=== PATIENT | male | born 1980 | race Hispanic/Latino ===

== ENCOUNTER 2017-10-20 07:45 | Emergency (ER) | payer OTHER, SELFPAY ==
[2017-10-20] MEDS ORDERED: METHYLPREDNISOLONE 125 MG INJ ONE (08:34)
[2017-10-20] MEDS ORDERED: IPRATROPIUM BROM 0.5MG/2.5ML ONE (08:35)
[2017-10-20] MEDS ORDERED: ALBUTEROL 2.5 MG/3 ML NEB SOL ONE (08:35)
[2017-10-20] MEDS ORDERED: NA CHLORIDE 0.9% 500 ML ONE (08:35)
[2017-10-20 09:11] LABS: Bicarbonate 25 mEq/L (21-31); Glucose Level 100 mg/dL (65-120); Potassium 4.1 mEq/L (3.6-5.0); Sodium Level 138 mEq/L (135-145)
[2017-10-20 09:13] LABS: Absolute Lymphocytes (CBC) 2.3 K/uL (0.7-4.9); Absolute Monocytes 0.6 K/uL (0.1-1.3); Absolute Neutrophil 5.3 K/uL (1.8-8.0); Basophils % 0.7 % (0-1.3); Eosinophils % 6.2 % (0-4.4); Hematocrit 44.8 % (39.6-49.0); Lymphocytes % 25.9 % (15.3-44.8); MCH 31.3 pg (27.0-35.0); MPV 8.4 fL (7.6-11.3); Monocytes % 6.8 % (3.3-12.3); RBC Red Blood Cell Count 4.98 M/uL (4.33-5.43)
[2017-10-20 09:17] LABS: ALT/SGPT 41 IU/L (10-60); AST/SGOT 27 IU/L (10-42); Albumin 4.4 g/dL (3.2-5.5); Alkaline Phosphatase 62 IU/L (42-121); BUN Blood Urea Nitrogen 21 mg/dL (6-20); Bilirubin Direct 0.1 mg/dL (0-0.2); Bilirubin Total 0.8 mg/dL (0.3-1.2); Creatine Phosphokinase 90 IU/L (22-269); Glomerular Filtration Rate > 90 mL/min (=/>90); Magnesium 1.5 mg/dL (1.8-2.5); Protein, Total 7.7 g/dL (6.0-8.3)
[2017-10-20 09:21] LABS: CKMB Creatine Kinase MB 2.2 ng/ml (0.3-4.0)
[2017-10-20 09:24] LABS: Protime INR 0.88
[2017-10-20] MEDS ORDERED: CETIRIZINE HCL 5 MG TABLET ONE (09:32)
[2017-10-20 09:44] LABS: Urine Blood TRACE (NEG); Urine Glucose NEGATIVE (NEG); Urine Protein NEGATIVE (NEG)
[2017-10-20] MEDS ORDERED: MAGNESIUM SULFATE 1 gm IVPB 1 GM/100 ML BAG IV ONE (10:01)
--- NOTE | 2017-10-20 10:04 | RAD REPORT ---
EXAM DESCRIPTION: RAD - Chest Pa And Lat (2 Views) - 10/20/2017 9:37 am CLINICAL HISTORY: Cough, shortness of breath COMPARISON: None. TECHNIQUE: PA and lateral views of the chest were obtained. FINDINGS: The lungs are underinflated. This accentuates the lung markings. No failure, infiltrate, m ass or edema suspected. Trachea is midline. Heart size is normal and central vasculature is within normal limits. No pleural effusion or pneumothorax seen. No acute bony finding noted. No aortic ab normality. IMPRESSION: Shallow inspiration exam without an acute cardiopulmonary finding.
--- NOTE | 2017-10-20 11:50 | ER ---
Nurse's Notes [facility] Name: David Valenzuela Age: 36 yrs Sex: Male : 1980 Arrival Date: 10/20/2017 Time: 07:48 Bed 6 Private MD: Diagnosis: Other chest pain;Shortness of breath Presentation: 10/20 07:54 Presenting complaint: Patient states: nasal discharge x 2 week, now nasal congestion ss and difficulty breathing since last night. Transition of care: patient was not received from another setting of care. Onset of symptoms was October 06, 2017. Care prior to arrival: None. 07:54 Method Of Arrival: Ambulatory ss 07:54 Acuity: KIM 4 ss Triage Assessment: 08:27 General: Appears in no apparent distress. uncomfortable. Respiratory: Reports shortness jl7 of breath since last night the patient has mild shortness of breath. Respiratory: Airway is patent Respiratory effort is even, unlabored, Respiratory pattern is regular, symmetrical. Respiratory: Breath sounds are clear bilaterally. Historical: - Allergies: 07:55 No Known Allergies; ss - Home Meds: 07:55 None [Active]; ss - PMHx: 07:55 None; ss - PSHx: 07:55 None; ss - Immunization history:: Adult Immunizations unknown. - Social history:: Smoking status: Patient/guardian denies using tobacco. Screenin:01 Abuse screen: Denies threats or abuse. Denies injuries from another. Nutritional jtb screening: No deficits noted. Tuberculosis screening: No symptoms or risk factors identified. Fall Risk None identified. Assessment: 08:01 General: Appears in no apparent distress. uncomfortable, Behavior is calm, cooperative, jtb appropriate for age. Pain: Complains of pain in chest Pain does not radiate. Pain currently is 2 out of 10 on a pain scale. at worst was 4 out of 10 on a pain scale. Quality of pain is described as pressure, Pain began 1 day ago. Is continuous. 08:01 Neuro: Level of Consciousness is awake, alert, obeys commands, Oriented to person, jtb place, time, situation. Cardiovascular: Reports shortness of breath, since Yesterday Heart tones S1 S2 present Patient's skin is warm and dry. Rhythm is sinus rhythm. Respiratory: Airway is patent Respiratory effort is even, unlabored, Respiratory pattern is regular, symmetrical, Breath sounds are clear bilaterally. GI: No signs and/or symptoms were reported involving the gastrointestinal system. : No signs and/or symptoms were reported regarding the genitourinary system. EENT: Throat is reddened. Derm: Skin is intact, Skin is dry, Skin is normal, Skin temperature is warm. Musculoskeletal: No signs and/or symptoms reported regarding the musculoskeletal system. 08:45 Reassessment: Patient and/or family updated on plan of care and expected duration. Pain jtb level reassessed. Patient is alert, oriented x 3, equal unlabored respirations, skin warm/dry/pink. Pt reports easier breathing. Respirations even and unlabored. Patient states feeling better. 09:15 Reassessment: Pt is at Radiology. jtb 09:50 Reassessment: Patient and/or family updated on plan of care and expected duration. Pain jtb level reassessed. Patient is alert, oriented x 3, equal unlabored respirations, skin warm/dry/pink. Pt states " The pain is almost gone now." Patient states feeling better. 10:32 Reassessment: Patient is alert, oriented x 3, equal unlabored respirations, skin jtb warm/dry/pink. Patient denies pain at this time. Patient states feeling better. 11:07 Reassessment: No changes from previously documented assessment. Patient and/or family jtb updated on plan of care and expected duration. Pain level reassessed. Patient is alert, oriented x 3, equal unlabored respirations, skin warm/dry/pink. Vital Signs: 07:55 Resp 17; Pain 2/10; ss 08:23 BP 125 / 92; Pulse 75; Resp 16 S; Pulse Ox 99% on Nebulizer Mask; Pain 2/10; jtb 08:30 Temp 97.8(O); jtb 09:00 BP 124 / 86; Pulse 84; Resp 18 S; Pulse Ox 95% on R/A; jtb 09:50 BP 110 / 72; Pulse 66; Resp 15 S; Pulse Ox 93% on R/A; Pain 0/10; jtb 10:32 BP 106 / 73; Pulse 79; Resp 16; Pulse Ox 93% on R/A; Pain 0/10; jtb 11:07 BP 119 / 77; Pulse 89; Resp 18 S; Pulse Ox 95% on R/A; Pain 0/10; jtb ED Course: 07:48 Patient arrived in ED. sb2 07:50 Tushar Onofre PA is PHCP. cp 07:50 Magdaleno Odom MD is Attending Physician. cp 07:55 Triage completed. ss 07:55 Arm band placed on right wrist. ss 08:01 Patient has correct armband on for positive identification. Placed in gown. Bed in low jtb position. Call light in reach. Side rails up X 1. septic tank installer on. Pulse ox on. NIBP on. 08:20 Inserted saline lock: 20 gauge in right antecubital area, using aseptic technique. jtb Blood collected. 08:20 Initial lab(s) drawn, by ED staff, sent to lab. jtb 08:21 EKG done, by poultry service technician. reviewed by Tushar CRANE. at1 08:26 Nisha Mata, RN is Primary Nurse. jl7 08:38 Radiology exam delayed due to patient receiving breathing treatment at this time. kw 09:22 X-ray completed. Patient tolerated procedure well. Patient moved back from radiology. ml 11:41 EKG done, by poultry service technician. reviewed by Tushar CRANE Repeat EKG. at1 12:10 No provider procedures requiring assistance completed. IV discontinued, intact, jtb bleeding controlled. Administered Medications: 08:00 Drug: AtroVENT Aerosol 0.5 mg Route: Inhalation; jl7 08:54 Follow up: Response: No adverse reaction ss 08:20 Drug: Albuterol 2.5 mg Route: Inhalation; jl7 08:55 Follow up: Response: No adverse reaction ss 08:21 Drug: NS 0.9% 500 ml Route: IV; Rate: bolus; Site: right antecubital; jl7 08:55 Follow up: IV Status: Completed infusion ss 08:22 Drug: SOLU-Medrol 125 mg Route: IVP; Site: right antecubital; jl7 08:55 Follow up: Response: No adverse reaction ss 09:15 Drug: ZyrTEC - Cetirizine 10 mg Route: PO; jl7 09:45 Follow up: Response: No adverse reaction jl7 09:50 Drug: Magnesium Sulfate 1 grams Route: IVPB; Infused Over: 1 hrs; Site: right jl7 antecubital; 10:50 Follow up: IV Status: Completed infusion jl7 Outcome: 11:49 Discharge ordered by . cp 12:10 Discharged to home ambulatory. jtb 12:10 Condition: stable 12:10 Discharge instructions given to patient, Instructed on discharge instructions, follow up and referral plans. medication usage, Demonstrated understanding of instructions, follow-up care, medications, Prescriptions given X 3. 12:11 Patient left the ED. jtb 12:27 Attestation : I agree with everything documented by Brigido Lagunas Student Nurse. jl7 Signatures: Jenn Yeager Shelby, RN RN ss Jacey Padilla Amanda, finance business partner EKG Tat1 Tushar Onofre PA PA cp Leal, Jahala RN RN jl7 Sussy Jarquin sb2 Brigido Lagunas j Corrections: (The following items were deleted from the chart) 08:22 08:01 Pain: Complains of pain in chest jtb jtb 10:02 08:01 EENT: No signs and/or symptoms were reported regarding the EENT system. jtb jtb
--- NOTE | 2017-10-20 11:50 | EDPHYS ---
Physician Documentation [facility] Name: David Valenzuela Age: 36 yrs Sex: Male : 1980 Arrival Date: 10/20/2017 Time: 07:48 Bed 6 Private MD: ED Physician Magdaleno Odom HPI: 10/20 08:02 This 36 yrs old Male presents to ER via Ambulatory with complaints of Nasal cp Congestion. 08:02 The patient has shortness of breath at rest. cp 08:02 Onset: The symptoms/episode began/occurred 2 week(s) ago, and became worse last night. cp 08:02 Associated signs and symptoms: Pertinent positives: chest pressure, slight cp non-productive cough, Pertinent negatives: fever, vomiting. Severity of symptoms: in the emergency department the symptoms are unchanged despite home interventions. Historical: - Allergies: 07:55 No Known Allergies; ss - Home Meds: 07:55 None [Active]; ss - PMHx: 07:55 None; ss - PSHx: 07:55 None; ss - Immunization history:: Adult Immunizations unknown. - Social history:: Smoking status: Patient/guardian denies using tobacco. ROS: 08:05 Constitutional: Negative for body aches, chills, fever, poor PO intake. cp 08:05 Eyes: Negative for injury, pain, redness, and discharge. cp 08:05 ENT: Positive for nasal congestion, Negative for drainage from ear(s), ear pain, sore throat, difficulty swallowing, difficulty handling secretions. 08:05 Neck: Negative for pain with movement, pain at rest, stiffness. 08:05 Cardiovascular: Positive for chest pain, Negative for edema, palpitations. 08:05 Respiratory: Positive for shortness of breath, at rest. Negative for wheezing. 08:05 Abdomen/GI: Negative for abdominal pain, nausea, vomiting, and diarrhea, constipation, black/tarry stool, rectal bleeding. 08:05 Back: Negative for pain at rest, pain with movement, radiated pain. 08:05 : Negative for urinary symptoms. 08:05 Skin: Negative for cellulitis, rash. 08:05 Neuro: Negative for altered mental status, dizziness, headache, syncope, near syncope, weakness. 08:05 All other systems are negative. Exam: 08:10 Constitutional: The patient appears in no acute distress, alert, awake, cp non-diaphoretic, non-toxic, well developed, well nourished, obese. 08:10 Head/Face: Normocephalic, atraumatic. cp 08:10 Eyes: Periorbital structures: appear normal, Pupils: equal, round, and reactive to cp light and accomodation, Extraocular movements: intact throughout, Conjunctiva: normal, no exudate, no injection, Sclera: no appreciated abnormality, Lids and lashes: appear normal, bilaterally. 08:10 ENT: External ear(s): are unremarkable, Ear canal(s): are normal, clear, TM's: bulging, is not appreciated, bilaterally, dullness, bilaterally, erythema, is not appreciated, bilaterally, Nose: noted congestion, scant rhinorrhea, Mouth: Lips: moist, Oral mucosa: pink and intact, moist, Posterior pharynx: Airway: no evidence of obstruction, patent, Tonsils: no enlargement, no erythema, no exudate, Uvula: midline, non-edematous, no erythema, swelling, is not appreciated, erythema, is not appreciated, exudate, is not appreciated, Voice: is normal. 08:10 Neck: ROM/movement: is normal, is supple, without pain, no range of motions limitations, no meningismus, no nuchal rigidity, Lymph nodes: no appreciated lymphadenopathy. 08:10 Chest/axilla: Inspection: normal, Palpation: is normal, no crepitus, no tenderness. 08:10 Cardiovascular: Rate: normal, Rhythm: regular, Pulses: Pulses are 2+ in right radial artery and left radial artery. Edema: is not appreciated, JVD: is not appreciated. 08:10 Respiratory: the patient does not display signs of respiratory distress, Respirations: labored breathing, is not present, accessory muscle usage, is absent, shallow respirations, that is mild, splinting, is not noted, tachypnea, is not appreciated, Breath sounds: decreased breath sounds, that are mild, diffuse, stridor, is not appreciated, + upper airway congestion. wheezing: is not appreciated. 08:10 Abdomen/GI: Inspection: abdomen appears normal, Bowel sounds: active, all quadrants, Palpation: abdomen is soft and non-tender, in all quadrants, rebound tenderness, is not appreciated, voluntary guarding, is not appreciated, involuntary guarding, is not appreciated. 08:10 Back: pain, is absent, ROM is normal. 08:10 Skin: cellulitis, is not appreciated, no rash present. 08:10 Neuro: Orientation: to person, place \T\ time. Mentation: lucid, able to follow commands, Cerebellar function: is grossly normal, Motor: moves all fours, strength is normal, Sensation: no obvious gross deficits. 08:18 ECG was reviewed by the Attending Physician. cp 11:05 ECG was reviewed by the Attending Physician. cp Vital Signs: 07:55 Resp 17; Pain 2/10; ss 08:23 BP 125 / 92; Pulse 75; Resp 16 S; Pulse Ox 99% on Nebulizer Mask; Pain 2/10; jtb 08:30 Temp 97.8(O); jtb 09:00 BP 124 / 86; Pulse 84; Resp 18 S; Pulse Ox 95% on R/A; jtb 09:50 BP 110 / 72; Pulse 66; Resp 15 S; Pulse Ox 93% on R/A; Pain 0/10; jtb 10:32 BP 106 / 73; Pulse 79; Resp 16; Pulse Ox 93% on R/A; Pain 0/10; jtb 11:07 BP 119 / 77; Pulse 89; Resp 18 S; Pulse Ox 95% on R/A; Pain 0/10; jtb MDM: 07:51 Patient medically screened. cp 08:19 Differential diagnosis: asthma, Bronchitis CHF exacerbation, Chronic Obstructive cp Pulmonary Disease pneumonia, Pneumothorax pulmonary edema, Pulmonary Embolism Unstable Angina. 11:45 Antibiotic administration: Not indicated, the patient does not have an appreciated cp infiltrate. 11:47 Data reviewed: vital signs, nurses notes, lab test result(s), EKG, radiologic studies, cp plain films. ED course: VSS. Patient reports he is feeling better. Will discharge to home for continued monitoring. 10/20 08:02 Order name: Basic Metabolic Panel cp 10/20 08:02 Order name: BNP cp 10/20 08:02 Order name: CBC with Diff cp 10/20 08:02 Order name: Ckmb cp 10/20 08:02 Order name: CPK cp 10/20 08:02 Order name: LFT's cp 10/20 08:02 Order name: Magnesium cp 10/20 08:02 Order name: PT-INR cp 10/20 08:02 Order name: Ptt, Activated cp 10/20 08:02 Order name: Troponin (emerg Dept Use Only) cp 10/20 09:12 Order name: Basic Metabolic Panel; Complete Time: 09:26 EDMS 10/20 09:26 Interpretation: Normal except: BUN 21. cp 10/20 09:18 Order name: Liver (Hepatic) Function; Complete Time: 09:26 EDMS 10/20 10:17 Interpretation: Within normal limits. cp 10/20 09:18 Order name: Creatine Phosphokinase; Complete Time: 09:26 EDMS 10/20 09:18 Order name: Magnesium; Complete Time: 09:26 EDMS 10/20 09:27 Interpretation: Abnormal: MG 1.5. cp 10/20 08:20 Order name: XRAY Chest Pa And Lat (2 Views) cp 10/20 09:19 Order name: CBC with Automated Diff; Complete Time: 09:26 EDMS 10/20 10:17 Interpretation: Normal except: EOSINOPHIL % 6.2. cp 10/20 09:19 Order name: Troponin (Emerg Dept Use Only); Complete Time: 09:26 EDMS 10/20 10:17 Interpretation: Within normal limits: TROPED < 0.03. cp 10/20 09:21 Order name: CKMB Creatine Kinase MB; Complete Time: 09:26 EDMS 10/20 09:23 Order name: Urine Dipstick--Ancillary (enter results) bd 10/20 09:26 Order name: Protime (+INR); Complete Time: 10:07 EDMS 10/20 09:26 Order name: PTT, Activated Partial Thromb; Complete Time: 10:07 EDMS 10/20 09:45 Order name: Urine Dipstick-Ancillary; Complete Time: 10:07 EDMS 10/20 10:07 Interpretation: Normal except: UBLD TRACE. cp 10/20 09:50 Order name: BNP B-Type Natriuretic Peptide; Complete Time: 10:07 EDMS 10/20 10:04 Order name: RAD; Complete Time: 10:07 EDMS 10/20 10:08 Interpretation: Report reviewed. cp 10/20 10:50 Order name: Troponin (emerg Dept Use Only) cp 10/20 11:33 Order name: Troponin (Emerg Dept Use Only); Complete Time: 11:45 EDMS 10/20 11:45 Interpretation: Reviewed. cp 10/20 08:02 Order name: EKG; Complete Time: 08:03 cp 10/20 08:02 Order name: Cardiac monitoring; Complete Time: 08:24 cp 10/20 08:02 Order name: EKG - Nurse/Tech; Complete Time: 08:24 cp 10/20 08:02 Order name: IV Saline Lock; Complete Time: 08:24 cp 10/20 08:02 Order name: Labs collected and sent; Complete Time: 08:24 cp 10/20 08:02 Order name: O2 Per Protocol; Complete Time: 08:24 cp 10/20 08:02 Order name: O2 Sat Monitoring; Complete Time: 08:25 cp 10/20 08:02 Order name: Urine Dipstick-Ancillary (obtain specimen); Complete Time: 09:19 cp 10/20 10:50 Order name: EKG - Nurse/Tech; Complete Time: 11:07 cp 10/20 10:50 Order name: EKG; Complete Time: 10:50 cp 10/20 10:50 Order name: Repeat Cardiac Enzymes at: 1100; Complete Time: 11:07 cp EC:18 Rate is 84 beats/min. Rhythm is regular. ME interval is normal. QRS interval is cp prolonged at 106 msec. QT interval is normal. No ST changes noted. Interpreted by me. Reviewed by me. 11:05 Rate is 75 beats/min. Rhythm is regular. ME interval is normal. QRS interval is cp prolonged at 104 msec. QT interval is normal. No ST changes noted. Interpreted by me. Reviewed by me. Administered Medications: 08:00 Drug: AtroVENT Aerosol 0.5 mg Route: Inhalation; jl7 08:54 Follow up: Response: No adverse reaction ss 08:20 Drug: Albuterol 2.5 mg Route: Inhalation; jl7 08:55 Follow up: Response: No adverse reaction ss 08:21 Drug: NS 0.9% 500 ml Route: IV; Rate: bolus; Site: right antecubital; jl7 08:55 Follow up: IV Status: Completed infusion ss 08:22 Drug: SOLU-Medrol 125 mg Route: IVP; Site: right antecubital; jl7 08:55 Follow up: Response: No adverse reaction ss 09:15 Drug: ZyrTEC - Cetirizine 10 mg Route: PO; jl7 09:45 Follow up: Response: No adverse reaction jl7 09:50 Drug: Magnesium Sulfate 1 grams Route: IVPB; Infused Over: 1 hrs; Site: right jl7 antecubital; 10:50 Follow up: IV Status: Completed infusion jl7 Disposition: 10/20/17 11:49 Discharged to Home. Impression: Other chest pain, Shortness of breath. - Condition is Stable. - Discharge Instructions: Nonspecific Chest Pain, Shortness of Breath. - Prescriptions for Prednisone 20 mg Oral Tablet - take 2 tablet by ORAL route once daily for 5 days; 10 tablet. Albuterol Sulfate 90 mcg/actuation - inhale 1-2 puff by INHALATION route every 4-6 hours; 1 Inhaler. Zyrtec 10 mg Oral Tablet - take 1 tablet by ORAL route once daily As needed; 30 tablet. - Medication Reconciliation Form, Thank You Letter, Antibiotic Education, Prescription Opioid Use, Work release form form. - Follow up: Private Physician; When: 1 - 2 days; Reason: Recheck today's complaints. - Problem is new. - Symptoms have improved. Addendum: 10/23/2017 19:07 Co-signature as Attending Physician, Magdaleno Odom MD I agree with the assessment and w a plan of care. Signatures: Dispatcher [employer] EDMS Belen Riddle RN RN ss Page, Corey, PA PA cp Leal, Jahala, RN RN jl7 Magdaleno Odom MD MD wa Bryson, James jtb
--- NOTE | 2017-10-20 14:04 | EKG ---
Test Date: 2017-10-20 Test Time: 11:03:17 Media Law Faculty Member: ISATU MEASUREMENT RESULTS: Intervals: Rate: 75 MI: 144 QRSD: 104 QT: 368 QTc: 410 [place]: P: 18 MI: 144 QRS: 10 T: 26 INTERPRETIVE STATEMENTS: Normal sinus rhythm Normal ECG Compared to ECG 10/20/2017 08:03:14 No significant changes Electronically Signed On 10-20-17 14:03:45 CDT by Baljeet Seymour
--- NOTE | 2017-10-20 14:05 | EKG ---
Test Date: 2017-10-20 Test Time: 08:03:14 Tobacco Grader: ISATU MEASUREMENT RESULTS: Intervals: Rate: 84 WV: 136 QRSD: 106 QT: 360 QTc: 425 [place]: P: 10 WV: 136 QRS: -2 T: 36 INTERPRETIVE STATEMENTS: Normal sinus rhythm Normal ECG Compared to ECG 10/13/2016 10:08:52 Sinus tachycardia no longer present Ventricular premature complex(es) no longer present Electronically Signed On 10-20-17 14:03:56 CDT by Baljeet Seymour
== END 2017-10-20 12:11 | disposition home or self-care (01) ==
LOC: ER 07:45
DX: R07.89 Other chest pain (principal)
CPT/HCPCS: 36415; 71046; 80048; 80076; 81003; 82550; 82553; 83735; 83880; 84484; 85025; 85610; 85730; 93005; 96361; 96365; 96375; 99285; J2930; J3475

== ENCOUNTER 2018-01-29 13:25 | Emergency (ER) | payer OTHER ==
[2018-01-29] MEDS ORDERED: TETRACAINE HCL 0.5% 2ML OPTH ONE (14:02)
[2018-01-29] MEDS ORDERED: FLUORESCEIN SODIUM 0.6 MG/WRAP ONE (14:02)
[2018-01-29] MEDS ORDERED: ERYTHROMYCIN 3.5GM OPTH OINT EACH EYE ONE (14:15)
--- NOTE | 2018-01-29 14:34 | EDPHYS ---
Physician Documentation [facility] Name: David Valenzuela Age: 37 yrs Sex: Male : 1980 Arrival Date: 01/29/2018 Time: 13:28 Bed 23 Private MD: None, None ED Physician Fabiano Mccullough HPI: 01/29 13:58 This 37 yrs old Male presents to ER via Ambulatory with complaints of Eye snw Problem. 13:58 The patient is experiencing pain, redness, tearing, to the left eye, caused by an snw unknown mechanism. Onset: The symptoms/episode began/occurred suddenly, yesterday. Duration: the symptoms are continuous. Associated signs and symptoms: Pertinent positives: None. Patient wears hard contact lenses. Severity of symptoms: At their worst the symptoms were moderate. It is unknown whether or not the patient has had similar symptoms in the past. The patient has not recently seen a physician. 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 - Social history:: Smoking status: Patient/guardian denies using tobacco. - Ebola Screening: : Patient denies exposure to infectious person Patient denies travel to an Ebola-affected area in the 21 days before illness onset. ROS: 13:57 Constitutional: Negative for fever, chills, and weight loss, ENT: Negative for injury, snw pain, and discharge, Neck: Negative for injury, pain, and swelling, Cardiovascular: Negative for chest pain, palpitations, and edema, Respiratory: Negative for shortness of breath, cough, wheezing, and pleuritic chest pain, Abdomen/GI: Negative for abdominal pain, nausea, vomiting, diarrhea, and constipation, Back: Negative for injury and pain, : Negative for injury, bleeding, discharge, and swelling, MS/Extremity: Negative for injury and deformity, Skin: Negative for injury, rash, and discoloration, Neuro: Negative for headache, weakness, numbness, tingling, and seizure. 13:57 ENT: Positive for left eye pain and tearing. Exam: 13:56 Constitutional: This is a well developed, well nourished patient who is awake, alert, snw and in no acute distress. Head/Face: Normocephalic, atraumatic. ENT: Nares patent. No nasal discharge, no septal abnormalities noted. Tympanic membranes are normal and external auditory canals are clear. Oropharynx with no redness, swelling, or masses, exudates, or evidence of obstruction, uvula midline. Mucous membranes moist. Neck: Trachea midline, no thyromegaly or masses palpated, and no cervical lymphadenopathy. Supple, full range of motion without nuchal rigidity, or vertebral point tenderness. No Meningismus. Chest/axilla: Normal chest wall appearance and motion. Nontender with no deformity. No lesions are appreciated. Cardiovascular: Regular rate and rhythm with a normal S1 and S2. No gallops, murmurs, or rubs. Normal PMI, no JVD. No pulse deficits. Respiratory: Lungs have equal breath sounds bilaterally, clear to auscultation and percussion. No rales, rhonchi or wheezes noted. No increased work of breathing, no retractions or nasal flaring. Abdomen/GI: Soft, non-tender, with normal bowel sounds. No distension or tympany. No guarding or rebound. No evidence of tenderness throughout. Back: No spinal tenderness. No costovertebral tenderness. Full range of motion. Skin: Warm, dry with normal turgor. Normal color with no rashes, no lesions, and no evidence of cellulitis. MS/ Extremity: Pulses equal, no cyanosis. Neurovascular intact. Full, normal range of motion. Neuro: Awake and alert, GCS 15, oriented to person, place, time, and situation. Cranial nerves II-XII grossly intact. Motor strength 5/5 in all extremities. Sensory grossly intact. Cerebellar exam normal. Normal gait. 13:56 Eyes: Periorbital structures: swelling, that is mild, on the left upper eyelid and left lower eyelid, Pupils: no acute changes, Extraocular movements: no acute changes, Conjunctiva: tearing noted, in left eye, Sclera: no appreciated abnormality, Lids and lashes: appear normal. 14:34 Eyes: Corneas: abrasion, that is small, on the left, a fluorescein strip employed to snw appreciate the findings, US of eye per Dr. Mccullough. Vital Signs: 13:44 BP 122 / 84; Pulse 80; Resp 16; Temp 97.7(O); Pulse Ox 97% on R/A; Pain 5/10; ss Visual Acuity: 14:08 Left Eye Pupil size 4 mm, Reactive To Accomodation; Right Eye Visual acuity 20/40, ss Pupil size 4 mm, Reactive To Accomodation; Both Eyes Visual acuity 20/40; Without Lenses; Pt states he is unable to read any lettering on visual acuity chart that he can only see "shadows" Procedures: 14:30 Eye Exam: no noted retinal detachment per Dr. Mccullough per US, no increased ICP. snw MDM: 13:48 Patient medically screened. snw 14:29 ED course: Bedside u/s does not reveal retinal detachment, optic nerve sheath diameter rn normal range, + corneal abrasion/ulceration evident on exam. . 14:35 Data reviewed: vital signs, nurses notes. Data interpreted: Pulse oximetry: on room air snw is 97 %. Interpretation: acceptable. Counseling: I had a detailed discussion with the patient and/or guardian regarding: the historical points, exam findings, and any diagnostic results supporting the discharge/admit diagnosis, the presence of at least one elevated blood pressure reading (>120/80) during this emergency department visit, the need for outpatient follow up, to return to the emergency department if symptoms worsen or persist or if there are any questions or concerns that arise at home. Special discussion: I have referred the patient to see his PCP for further evaluation of high blood pressure. Based on the history and exam findings, there is no indication for further emergent testing or inpatient evaluation. I discussed with the patient/guardian the need to see the opthamologist for further evaluation of the symptoms, I discussed with the patient/guardian the need to see the primary care provider for further evaluation of the symptoms. 01/29 13:53 Order name: Visual Acuity; Complete Time: 14:07 snw 01/29 13:53 Order name: Eye Tray; Complete Time: 13:57 snw 01/29 13:53 Order name: Fluoresene Opth strip; Complete Time: 13:57 snw Administered Medications: 14:12 Drug: Tetracaine Drops 0.5 % 1 drops {Note: administered by Allison Lucas NP.} ss Route: Ophthalmic; Site: left eye; 14:31 Drug: ERYTHromycin Ointment 1 application Route: Ophthalmic; Site: left eye; ss Disposition: 18:19 Co-signature as Attending Physician, Fabiano Mccullough MD. rn Disposition: 01/29/18 14:34 Discharged to Home. Impression: Injury of conjunctiva and corneal abrasion without foreign body, left eye. - Condition is Stable. - Discharge Instructions: Corneal Abrasion. - Prescriptions for Tylenol- Codeine #3 300-30 mg Oral Tablet - take 2 tablet by ORAL route every 6 hours As needed; 30 tablet. Vigamox 0.5 % Ophthalmic Drops - instill 1 drop by OPHTHALMIC route every 8 hours for 7 days; 5 milliliter. - Work release form, Medication Reconciliation Form, Thank You Letter, Antibiotic Education, Prescription Opioid Use form. - Follow up: Leyda Stokes MD; When: 2 - 3 days; Reason: Recheck today's complaints, Continuance of care, Re-evaluation by your physician. - Notes: No contact in left eye until abrasion healed. Follow up with Opthalmology Signatures: Allison Lucas, STAFF TECHNOLOGIST-C STAFF TECHNOLOGIST-Csnw Fabiano Mccullough MD MD rn [facility]ilbert RN RN ss Corrections: (The following items were deleted from the chart) 14:42 14:34 01/29/2018 14:34 Discharged to Home. Impression: Injury of conjunctiva and ss corneal abrasion without foreign body, left eye. Condition is Stable. Forms are Medication Reconciliation Form, Thank You Letter, Antibiotic Education, Prescription Opioid Use. Follow up: Leyda Stokes; When: 2 - 3 days; Reason: Recheck today's complaints, Continuance of care, Re-evaluation by your physician. snw
--- NOTE | 2018-01-29 14:34 | ER ---
Nurse's Notes [facility] Name: David Valenzuela Age: 37 yrs Sex: Male : 1980 Arrival Date: 01/29/2018 Time: 13:28 Bed 23 Private MD: None, None Diagnosis: Injury of conjunctiva and corneal abrasion without foreign body, left eye Presentation: 01/29 13:39 Presenting complaint: Patient states: pain and drainage to L eye that began yesterday. ss . Transition of care: patient was not received from another setting of care. Onset of symptoms was January 28, 2018. Risk Assessment: Do you want to hurt yourself or someone else? Patient reports no desire to harm self or others. Initial Sepsis Screen: Does the patient meet any 2 criteria? No. Patient's initial sepsis screen is negative. Does the patient have a suspected source of infection? No. Patient's initial sepsis screen is negative. Care prior to arrival: None. 13:39 Method Of Arrival: Ambulatory ss 13:39 Acuity: KIM 4 ss Historical: - Allergies: 13:44 No Known Allergies; ss - Home Meds: 13:44 None [Active]; ss - PMHx: 13:44 keratoconus; ss - PSHx: 13:44 None; ss - Immunization history:: Adult Immunizations up to date. - Social history:: Smoking status: Patient/guardian denies using tobacco. - Ebola Screening: : Patient denies exposure to infectious person Patient denies travel to an Ebola-affected area in the 21 days before illness onset. Screenin:08 Abuse screen: Denies threats or abuse. Denies injuries from another. Nutritional ss screening: No deficits noted. Tuberculosis screening: Never had TB. Fall Risk None identified. Assessment: 14:00 General: Appears in no apparent distress. comfortable, Behavior is calm, cooperative, ss Denies fever, feeling ill, fatigue, chills. Pain: Complains of pain in left eye Pain currently is 5 out of 10 on a pain scale. Quality of pain is described as tender, Pain began yesterday afternoon, denies pain. Is continuous. Neuro: Level of Consciousness is awake, alert, obeys commands, Oriented to person, place, time, situation. Cardiovascular: Capillary refill < 3 seconds is brisk in bilateral fingers Patient's skin is warm and dry. Respiratory: Airway is patent Respiratory effort is even, unlabored, Respiratory pattern is regular, symmetrical, Denies cough, shortness of breath. EENT: Eyes are tearing on outer aspect of conjuctiva of left eye and inner aspect of conjunctiva of left eye Sclera/Cornea are reddened in outer aspect of conjuctiva of left eye and inner aspect of conjunctiva of left eye Oral mucosa is moist. Derm: Skin is intact, is healthy with good turgor, Skin is dry, Skin is pink, warm \\T\\ dry. normal. Musculoskeletal: Circulation, motion, and sensation intact. Range of motion: intact in all extremities, Swelling absent. Vital Signs: 13:44 BP 122 / 84; Pulse 80; Resp 16; Temp 97.7(O); Pulse Ox 97% on R/A; Pain 5/10; ss Visual Acuity: 14:08 Left Eye Pupil size 4 mm, Reactive To Accomodation; Right Eye Visual acuity 20/40, ss Pupil size 4 mm, Reactive To Accomodation; Both Eyes Visual acuity 20/40; Without Lenses; Pt states he is unable to read any lettering on visual acuity chart that he can only see "shadows" ED Course: 13:28 Patient arrived in ED. sb2 13:29 None, None is Private Physician. sb2 13:37 Allison Lucas FNP-C is [facility]. snw 13:37 Fabiano Mccullough MD is Attending Physician. snw 13:39 Belen Riddle, PRERNA is Primary Nurse. ss 13:41 Triage completed. ss 13:44 Arm band placed on right wrist. ss 14:08 Patient has correct armband on for positive identification. Bed in low position. Call ss light in reach. Side rails up X 1. 14:33 Leyda Stokes MD is Referral Physician. snw 14:34 No provider procedures requiring assistance completed. Patient did not have IV access ss during this emergency room visit. Administered Medications: 14:12 Drug: Tetracaine Drops 0.5 % 1 drops {Note: administered by Allison Lucas NP.} ss Route: Ophthalmic; Site: left eye; 14:31 Drug: ERYTHromycin Ointment 1 application Route: Ophthalmic; Site: left eye; ss Outcome: 14:34 Discharge ordered by . snw 14:42 Discharged to home ambulatory. ss 14:42 Condition: good 14:42 Discharge instructions given to patient, Instructed on discharge instructions, follow up and referral plans. medication usage, Demonstrated understanding of instructions, follow-up care, medications, Prescriptions given X 2. 14:42 Patient left the ED. Signatures: Allison Lucas, PROJECT ENGINEER-C PROJECT ENGINEER-Csnw Belen Riddle RN RN Sussy Jarquin sb2
== END 2018-01-29 14:42 | disposition home or self-care (01) ==
LOC: ER 13:25
DX: S05.02XA Injury of conjunctiva and corneal abrasion without foreign body, left eye, initial encounter (principal); X58.XXXA Exposure to other specified factors, initial encounter; Y93.9 Activity, unspecified; Y92.9 Unspecified place or not applicable; Y99.9 Unspecified external cause status
CPT/HCPCS: 99283

== ENCOUNTER 2018-03-28 17:55 | Emergency (ER) | payer OTHER ==
[2018-03-28] MEDS ORDERED: KETOROLAC 30 MG/ML INJ ONE (19:17)
[2018-03-28] MEDS ORDERED: NA CHLORIDE 0.9% 1,000 ML ONE (19:17)
[2018-03-28] MEDS ORDERED: ONDANSETRON 4 MG/2 ML VIAL ONE (19:17)
[2018-03-28 19:38] LABS: Absolute Lymphocytes (CBC) 2.3 K/uL (0.7-4.9); Absolute Monocytes 0.7 K/uL (0.1-1.3); Absolute Neutrophil 6.6 K/uL (1.8-8.0); Basophils % 0.6 % (0-1.3); Eosinophils % 2.3 % (0-4.4); Hematocrit 46.4 % (39.6-49.0); Lymphocytes % 23.3 % (15.3-44.8); MCH 31.4 pg (27.0-35.0); MCV 91.2 fL (80-100); MPV 8.9 fL (7.6-11.3); Monocytes % 7.3 % (3.3-12.3); RBC Red Blood Cell Count 5.09 M/uL (4.33-5.43)
[2018-03-28 19:42] LABS: Urine Blood NEGATIVE (NEG); Urine Glucose NEGATIVE (NEG); Urine Protein NEGATIVE (NEG); Urine Specific Gravity 1.025 (1.005-1.030); Urine pH 5.5 (5.0-7.0)
--- NOTE | 2018-03-28 19:52 | RAD REPORT ---
EXAM DESCRIPTION: CT - Stone Protocol - 03/28/2018 7:36 pm CLINICAL HISTORY: Flank pain. FLANK PAIN COMPARISON: None TECHNIQUE: Axial images were obtained without oral or IV contrast. Lack of contrast limits solid org an and vascular assessment. The [id number] spans the entirety of the system partially obscuring uppermost abdomen and lung bases. Coronal reformatted images were obtained and reviewed. All CT scans are performed using dose optimization technique as appropriate and may include automated exposure control or mA/KV adjustment according to patient size. FINDINGS: The lower lung parmar are clear. Prominent fatty liver is noted. The spleen is normal. The pancreas and adrenal glands are normal. No pathologic lymphadenopathy in the abdomen or pelvis. A tiny punctate stone is suspected mid right ureter. No hydronephrosis. No bowel obstruction, free air, free fluid or abscess. Normal appendix noted.Small to moderate bilate ral inguinal hernia. No significant bony abnormality. IMPRESSION: Tiny punctate calculus suspected mid right ureter without hydronephrosis. Fatty liver.
[2018-03-28 19:56] LABS: ALT/SGPT 112 U/L (12-78); AST/SGOT 52 U/L (15-37); Albumin 4.1 g/dL (3.4-5.0); Alkaline Phosphatase 79 U/L (45-117); BUN Blood Urea Nitrogen 17 mg/dL (7-18); Bicarbonate 27 mmol/L (21-32); Bilirubin Direct < 0.1 mg/dL (0-0.2); Bilirubin Total 0.4 mg/dL (0.2-1.0); Glucose Level 100 mg/dL (74-106); Lipase 174 U/L (73-393); Potassium 3.9 mmol/L (3.5-5.1); Protein, Total 8.4 g/dL (6.4-8.2); Sodium Level 140 mmol/L (136-145)
[2018-03-28] MEDS ORDERED: TAMSULOSIN 0.4 MG SR CAP ONE (20:06)
[2018-03-28 20:35] LABS: Urine Bacteria <20 /HPF (NONE SEEN); Urine Culture Reflex Order NOT NEEDED; Urine Mucus HEAVY /HPF (NONE SEEN); Urine RBC NONE SEEN /HPF (NONE SEEN)
--- NOTE | 2018-03-28 20:37 | ER ---
Nurse's Notes [facility] Name: David Valenzuela Age: 37 yrs Sex: Male : 1980 Arrival Date: 03/28/2018 Time: 17:58 Bed 8 Private MD: None, None Diagnosis: Right ureteral calculous Presentation: 03/28 18:07 Presenting complaint: Patient states: R flank pain that began this morning, also ph reports N/V, pt appears restless and uncomfortable in triaqe. Transition of care: patient was not received from another setting of care. Onset of symptoms was March 28, 2018. Risk Assessment: Do you want to hurt yourself or someone else? Patient reports no desire to harm self or others. Initial Sepsis Screen: Does the patient meet any 2 criteria? No. Patient's initial sepsis screen is negative. Does the patient have a suspected source of infection? No. Patient's initial sepsis screen is negative. Care prior to arrival: None. 18:07 Method Of Arrival: Ambulatory 18:07 Acuity: KIM 3 ph Triage Assessment: 19:23 General: Appears uncomfortable, Behavior is calm, cooperative. Pain: Complains of pain ak1 in right mid back and right low back. EENT: No signs and/or symptoms were reported regarding the EENT system. Neuro: No deficits noted. Cardiovascular: No deficits noted. Respiratory: No deficits noted. GI: No signs and/or symptoms were reported involving the gastrointestinal system. : CVA tenderness noted on right Reports pain in right flank(s). Derm: No signs and/or symptoms reported regarding the dermatologic system. Musculoskeletal: No signs and/or symptoms reported regarding the musculoskeletal system. 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 - Social history:: Smoking status: Patient/guardian denies using tobacco. - Ebola Screening: : No symptoms or risks identified at this time. Screenin:23 Abuse screen: Denies threats or abuse. Denies injuries from another. Nutritional ak1 screening: No deficits noted. Tuberculosis screening: No symptoms or risk factors identified. Fall Risk None identified. Assessment: 19:25 Reassessment: Patient appears in no apparent distress at this time. No changes from ak1 previously documented assessment. see triage assessment. Vital Signs: 18:08 BP 133 / 107; Pulse 101; Resp 18; Temp 99.0(O); Pulse Ox 95% on R/A; Pain 10/10; ph 19:23 BP 125 / 94; Pulse 79; Resp 20; Pulse Ox 98% on R/A; Pain 8/10; ak1 ED Course: 17:58 Patient arrived in ED. sb2 17:58 None, None is Private Physician. sb2 18:08 Triage completed. ph 18:09 Arm band placed on Patient placed in waiting room, Patient notified of wait time. ph 19:05 Vidal Reid, HIMA is PHCP. pm1 19:05 Tushar Smith MD is Attending Physician. pm1 19:23 Alexander Garsia, RN is Primary Nurse. ak1 19:23 Patient has correct armband on for positive identification. Placed in gown. Bed in low ak1 position. Call light in reach. Side rails up X 1. Adult w/ patient. Pulse ox on. NIBP on. Door closed. Warm blanket given. 19:25 Initial lab(s) drawn, by ED staff, sent to lab. Urine collected: clean catch specimen, ak1 clear, alexander colored. Inserted saline lock: 20 gauge in right antecubital area, using aseptic technique. ,using aseptic technique. placed by Yg Ellison Blood collected. 19:36 CT Stone Protocol In Process Unspecified. EDMS 19:58 No provider procedures requiring assistance completed. ak1 20:37 Denzel Lamar MD is Referral Physician. pm1 20:50 IV discontinued, intact, bleeding controlled, No redness/swelling at site. Pressure ak1 dressing applied. Administered Medications: 19:26 Drug: NS 0.9% 1000 ml Route: IV; Rate: 1000 ml; Site: right antecubital; ak1 20:50 Follow up: IV Status: Completed infusion ak1 19:26 Drug: Zofran 4 mg Route: IVP; Site: right antecubital; ak1 19:57 Follow up: Response: No adverse reaction ak1 19:26 Drug: TORadol 30 mg Route: IVP; Site: right antecubital; ak1 19:57 Follow up: Response: No adverse reaction ak1 20:05 Drug: Flomax 0.4 mg Route: PO; ak1 20:06 Follow up: Response: No adverse reaction ak1 Outcome: 19:58 Condition: stable ak1 20:37 Discharge ordered by . pm1 20:50 Discharged to home ambulatory, with family. ak1 20:50 Discharge instructions given to patient, Instructed on discharge instructions, follow up and referral plans. no drinking with medication, no driving heavy equipment, medication usage, Demonstrated understanding of instructions, follow-up care, medications, Prescriptions given X 3. 20:55 Patient left the ED. ak1 Signatures: Dispatcher [employer] EDMS Alexander Garsia RN RN ak1 Yaa Ferrara RN RN ph Marinas, Patrick, CRIMINAL JUDGE CRIMINAL JUDGE pm1 Sussy Jarquin2
--- NOTE | 2018-03-28 20:37 | EDPHYS ---
Physician Documentation [facility] Name: David Valenzuela Age: 37 yrs Sex: Male : 1980 Arrival Date: 03/28/2018 Time: 17:58 Bed 8 Private MD: None, None ED Physician Tushar Smith HPI: 03/28 19:54 This 37 yrs old Male presents to ER via Ambulatory with complaints of right pm1 flank pain. 19:54 The patient presents with pain that is acute, with no known mechanism of injury. The pm1 symptoms are located in the right low back. Onset: The symptoms/episode began/occurred this morning. The pain does not radiate. Associated signs and symptoms: Pertinent positives: nausea, Pertinent negatives: chest pain, dysuria, fever, hematuria, vomiting. The problem was sustained without known cause. Modifying factors: The patient symptoms are alleviated by nothing, the patient symptoms are aggravated by nothing. Severity of symptoms: in the emergency department the symptoms are actually worse. The patient has not experienced similar symptoms in the past. The patient has not recently seen a physician. 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 - Social history:: Smoking status: Patient/guardian denies using tobacco. - Ebola Screening: : No symptoms or risks identified at this time. ROS: 19:54 Constitutional: Negative for fever, chills, and weight loss, Eyes: Negative for injury, pm1 pain, redness, and discharge, ENT: Negative for injury, pain, and discharge, Neck: Negative for injury, pain, and swelling, Cardiovascular: Negative for chest pain, palpitations, and edema, Respiratory: Negative for shortness of breath, cough, wheezing, and pleuritic chest pain, Abdomen/GI: Negative for abdominal pain, nausea, vomiting, diarrhea, and constipation. 19:54 : Negative for injury, bleeding, discharge, and swelling, MS/Extremity: Negative for injury and deformity, Skin: Negative for injury, rash, and discoloration, Neuro: Negative for headache, weakness, numbness, tingling, and seizure. 19:54 Back: Positive for flank pain, on the right, Negative for radiated pain. Exam: 19:54 Constitutional: This is a well developed, well nourished patient who is awake, alert, pm1 and in no acute distress. Head/Face: Normocephalic, atraumatic. Eyes: Pupils equal round and reactive to light, extra-ocular motions intact. Lids and lashes normal. Conjunctiva and sclera are non-icteric and not injected. Cornea within normal limits. Periorbital areas with no swelling, redness, or edema. ENT: Nares patent. No nasal discharge, no septal abnormalities noted. Tympanic membranes are normal and external auditory canals are clear. Oropharynx with no redness, swelling, or masses, exudates, or evidence of obstruction, uvula midline. Mucous membranes moist. Neck: Trachea midline, no thyromegaly or masses palpated, and no cervical lymphadenopathy. Supple, full range of motion without nuchal rigidity, or vertebral point tenderness. No Meningismus. Chest/axilla: Normal chest wall appearance and motion. Nontender with no deformity. No lesions are appreciated. Cardiovascular: Regular rate and rhythm with a normal S1 and S2. No gallops, murmurs, or rubs. Normal PMI, no JVD. No pulse deficits. Respiratory: Lungs have equal breath sounds bilaterally, clear to auscultation and percussion. No rales, rhonchi or wheezes noted. No increased work of breathing, no retractions or nasal flaring. Abdomen/GI: Soft, non-tender, with normal bowel sounds. No distension or tympany. No guarding or rebound. No evidence of tenderness throughout. 19:54 Skin: Warm, dry with normal turgor. Normal color with no rashes, no lesions, and no evidence of cellulitis. MS/ Extremity: Pulses equal, no cyanosis. Neurovascular intact. Full, normal range of motion. 19:54 Back: normal spinal alignment noted, CVA tenderness, that is mild, is noted on the right. 19:54 Neuro: Orientation: is normal, Motor: moves all fours. Vital Signs: 18:08 BP 133 / 107; Pulse 101; Resp 18; Temp 99.0(O); Pulse Ox 95% on R/A; Pain 10/10; ph 19:23 BP 125 / 94; Pulse 79; Resp 20; Pulse Ox 98% on R/A; Pain 8/10; ak1 MDM: 19:05 Patient medically screened. pm1 19:56 Data reviewed: vital signs. Data interpreted: Pulse oximetry: on room air is 98 %. pm1 Interpretation: normal. 20:36 Counseling: I had a detailed discussion with the patient and/or guardian regarding: the pm1 historical points, exam findings, and any diagnostic results supporting the discharge/admit diagnosis, lab results, radiology results, the need for outpatient follow up, a urologist, to return to the emergency department if symptoms worsen or persist or if there are any questions or concerns that arise at home. 03/28 19:10 Order name: Basic Metabolic Panel; Complete Time: 19:56 pm1 03/28 19:10 Order name: CBC with Diff; Complete Time: 19:48 pm1 03/28 19:10 Order name: Hepatic Function; Complete Time: 19:56 pm1 03/28 19:10 Order name: Lipase; Complete Time: 19:56 pm1 03/28 19:10 Order name: Urine Microscopic Only; Complete Time: 20:36 pm1 03/28 19:28 Order name: Urine Dipstick--Ancillary (enter results); Complete Time: 19:48 mt 03/28 19:10 Order name: IV Saline Lock; Complete Time: 19:27 pm1 03/28 19:10 Order name: Labs collected and sent; Complete Time: 19:27 pm1 03/28 19:10 Order name: Urine Dipstick-Ancillary (obtain specimen); Complete Time: 19:27 pm1 03/28 19:10 Order name: CT Stone Protocol; Complete Time: 19:53 pm1 Administered Medications: : Drug: NS 0.9% 1000 ml Route: IV; Rate: 1000 ml; Site: right antecubital; ak1 20:50 Follow up: IV Status: Completed infusion ak1 :26 Drug: Zofran 4 mg Route: IVP; Site: right antecubital; ak1 19:57 Follow up: Response: No adverse reaction ak1 :26 Drug: TORadol 30 mg Route: IVP; Site: right antecubital; ak1 19:57 Follow up: Response: No adverse reaction ak1 20:05 Drug: Flomax 0.4 mg Route: PO; ak1 20:06 Follow up: Response: No adverse reaction ak1 Disposition: 03/29 06:56 Co-signature as Attending Physician, Tushar Smith MD I agree with the assessment and griffin plan of care. Disposition: 03/28/18 20:37 Discharged to Home. Impression: Right ureteral calculous. - Condition is Stable. - Discharge Instructions: Kidney Stones, Dietary Guidelines to Help Prevent Kidney Stones. - Prescriptions for Tylenol- Codeine #3 300-30 mg Oral Tablet - take 2 tablets by ORAL route every 6 hours As needed; 20 tablet. Zofran 4 mg Oral Tablet - take 1 tablet by ORAL route every 8 hours As needed; 20 tablet. Flomax 0.4 mg Oral Capsule, Sust. Release 24 hr - take 1 capsule by ORAL route once daily 1/2 hour following the same meal each day; 10 capsule. - Work release form, Medication Reconciliation Form, Thank You Letter, Antibiotic Education, Prescription Opioid Use form. - Follow up: Emergency Department; When: As needed; Reason: Worsening of condition. Follow up: [facility]; When: 2 - 3 days; Reason: Recheck today's complaints, Continuance of care, Re-evaluation by your physician. - Problem is new. - Symptoms have improved. Signatures: Dispatcher [employer] Tushar Zabala MD MD cha Krenek, Amber RN RN ak1 Yaa Ferrara RN RN Vidal Villarreal, [employer] FILTER OPERATOR pm1 Corrections: (The following items were deleted from the chart) 03/28 20:55 20:37 03/28/2018 20:37 Discharged to Home. Impression: Right ureteral calculous. ak1 Condition is Stable. Discharge Instructions: Kidney Stones, Dietary Guidelines to Help Prevent Kidney Stones. Prescriptions for Tylenol-Codeine #3 300-30 mg Oral Tablet - take 2 tablets by ORAL route every 6 hours As needed; 20 tablet, Zofran 4 mg Oral Tablet - take 1 tablet by ORAL route every 8 hours As needed; 20 tablet, Flomax 0.4 mg Oral Capsule, Sust. Release 24 hr - take 1 capsule by ORAL route once daily 1/2 hour following the same meal each day; 10 capsule. and Forms are Medication Reconciliation Form, Thank You Letter, Antibiotic Education, Prescription Opioid Use. Follow up: Emergency Department; When: As needed; Reason: Worsening of condition. Follow up: Philmore Willard; When: 2 - 3 days; Reason: Recheck today's complaints, Continuance of care, Re-evaluation by your physician. Problem is new. Symptoms have improved. pm1
== END 2018-03-28 20:55 | disposition home or self-care (01) ==
LOC: ER 17:55
DX: N20.1 Calculus of ureter (principal)
CPT/HCPCS: 36415; 74176; 76377; 80048; 80076; 81003; 81015; 83690; 85025; 96361; 96374; 96375; 99284; J2405; J7030